=== PATIENT | male | born 1945 | race Caucasian/White ===

== ENCOUNTER → 2019-10-18 | Outpatient (CLI) | payer MEDICARE, OTHER ==
[~2019-10-18] MED LIST: REGADENOSON 0.4 MG/5 ML SYRINGE ONE
== END | disposition home or self-care (01) ==
LOC: CFH 08:20
PROVIDERS: ATTEND Internal Medicine Cardiovascular Disease
DX: I25.89 Other forms of chronic ischemic heart disease (principal)
CPT/HCPCS: 78452; 93017; A9502; J2785

== ENCOUNTER 2019-10-26 08:14 | Outpatient (CLI) | payer MEDICARE | END 2019-10-26 23:59 | disposition home or self-care (01) | LOC: CFH 08:14 | PROVIDERS: ATTEND Physician Assistant Medical | DX: I08.0 Rheumatic disorders of both mitral and aortic valves (principal); I10 Essential (primary) hypertension; I99.8 Other disorder of circulatory system; E78.5 Hyperlipidemia, unspecified | CPT/HCPCS: 93306 ==

== ENCOUNTER → 2019-11-29 | Outpatient (CLI) | payer MEDICARE ==
[~2019-11-29] MED LIST changes: +ASPI-496 PO; +BACL-19 PO; +CHOL10003 PO; +DILT180C72 PO; +ESCI20TA PO; +ESOM40CA PO; +LEVE500T8 PO; +LEVO15TA6 PO; +MELA1TAB15 PO; +OXYC-306 PO; +POTA99TA2 PO; +RAMI5CAP57 PO; -REGADENOSON 0.4 MG/5 ML SYRINGE ONE; +RIZA10TA20 PO; +SIMV40TA20 PO; +VITA1TAB19 PO
[2019-11-29 16:32] LABS: ALANINE AMINOTRANSFERASE 16 U/L (12-78); ALBUMIN 3.7 g/dL (3.4-5.0); ANION GAP 4 mmol/L (5-15); CALCIUM 9.1 mg/dL (8.5-10.1); CHLORIDE 105 mmol/L (98-107); CREATININE 0.98 mg/dL (0.7-1.3)
[2019-11-29 16:35] LABS: ALKALINE PHOSPHATASE 93 U/L (45-117); BILIRUBIN,TOTAL 0.3 mg/dL (0.2-1.0); TOTAL PROTEIN 7.1 g/dL (6.4-8.2)
== END | disposition home or self-care (01) ==
LOC: STAR 15:12
PROVIDERS: ATTEND Internal Medicine
DX: Z01.818 Encounter for other preprocedural examination (principal); C18.9 Malignant neoplasm of colon, unspecified; K21.9 Gastro-esophageal reflux disease without esophagitis
CPT/HCPCS: 36415; 80053; 93005

== ENCOUNTER 2019-12-06 11:49 | Day surgery (SDC) | payer MEDICARE ==
[~2019-12-06] VITALS: Ht 170.2 cm; Wt 76.3 kg
[2019-12-06] MEDS ORDERED: LACTATED RINGERS 1,000 ML IV SCH (12:20)
[2019-12-06 12:26] VITALS: BP 144/95
[2019-12-06] MEDS ORDERED: PROPOFOL 10 MG/ML, 20ML ONE (14:10)
[2019-12-06] MEDS ORDERED: hydrALAzine 20 MG/ML, 1ML IV PRN (14:30)
[2019-12-06] MEDS ORDERED: LABETALOL 5MG/ML, 20ML IV PRN (14:30)
== END 2019-12-06 16:15 | disposition home or self-care (01) ==
LOC: OUT 11:49
PROVIDERS: ATTEND Internal Medicine
DX: K63.89 Other specified diseases of intestine (principal); K31.89 Other diseases of stomach and duodenum; K64.4 Residual hemorrhoidal skin tags; K57.30 Diverticulosis of large intestine without perforation or abscess without bleeding; K22.5 Diverticulum of esophagus, acquired; K21.9 Gastro-esophageal reflux disease without esophagitis; G47.33 Obstructive sleep apnea (adult) (pediatric); I10 Essential (primary) hypertension; Z80.0 Family history of malignant neoplasm of digestive organs
CPT/HCPCS: 43239; 43248; 45380; 88305; J2704; J7120